=== PATIENT | female | born 1945 | race Caucasian/White ===

== ENCOUNTER 2020-03-06 13:52 | Outpatient (CLI) | payer MEDICARE, SELFPAY ==
--- NOTE | ~2020-03-06 | CT_ITS ---
EXAMINATION: CT brain wo con DATE: 03/06/2020 14:55 INDICATION: Dizziness, giddiness TECHNIQUE: Computed tomography (CT) of the head was performed without intravenous contrast. The mA wa s adjusted according to patient size. Iterative reconstruction technique was employed. Exam dose: 60 5.33 mGy-cm total exam DLP. COMPARISON: None FINDINGS: No intracranial mass lesion or hemorrhage or cerebrovascular accident. No midline shift or mass effect. Normal ventricular size. No subdural or epidural hematoma. There are bilateral carotid siphon internal carotid artery calcifications. The included paranasal sinuses and the mastoid air cells are normally developed and aerated. Bilateral hyperostosis frontalis interna. No fracture or bone destruction of the cranial vault. IMPRESSION: Cerebral atherosclerosis No acute intracranial abnormality Reviewed, dictated and finalized at [facility]. Reviewed, dictated and finalized at [facility].
== END 2020-03-06 13:53 | disposition home or self-care (01) ==
PROVIDERS: PCP Family Medicine; Visit Provider Family Medicine
DX: R51 Headache (principal); R42 Dizziness and giddiness; R20.0 Anesthesia of skin; R20.2 Paresthesia of skin; Z85.43 Personal history of malignant neoplasm of ovary; I67.2 Cerebral atherosclerosis
CPT/HCPCS: 70450

== ENCOUNTER 2020-03-11 14:15 | Outpatient (CLI) | payer MEDICARE, SELFPAY ==
--- NOTE | ~2020-03-11 | US_ITS ---
EXAMINATION: US carotid duplex BI DATE: 03/11/2020 14:55 INDICATION: Disorder of the arteries. Encephalopathy. TECHNIQUE: Grayscale, color Doppler, and pulsed Doppler images of the cervical carotid arteries were obtained. The degree of vessel stenosis is placed in one of the following categories: normal, <50%, 5 0-69%, >=70% but less than near-occlusion, near-occlusion, or total occlusion. Note that percent sten osis relative to normal distal artery lumen diameter is indirectly measured from velocity measurement s as described by Choco, et al. Radiology 2003; [id number]. Notes: Normal: Peak systolic velocity <125 centimeters/sec and no plaque <50%. Peak systolic velocity <125 ( EDV <40; ICA/CCA PSV ratio <2.0; used these factors only a tandem lesions or low cardiac output or co ntralateral disease) 50-69 %: PSV 125-230 (EDV 40-100; ratio 2-4) >= 70% but less than near occlusion: PSV greater than 230 (EDV > 100; ratio> 4.0) Near Occlusion: PSV that is variable; markedly narrowed lumen Occlusion: Absent flow on color/spectral Doppler and no lumen on short scale. COMPARISON: None. FINDINGS: RIGHT: The right common carotid artery (CCA) peak systolic velocity (PSV) is 89 cm/s. The right internal car otid artery (ICA) PSV is 66 cm/s. The right ICA end-diastolic velocity (EDV) is 16 cm/s. The right IC A/CCA PSV ratio is 0.7. The external carotid artery (ECA) PSV is 79 cm/s. There is antegrade flow in the right vertebral artery. LEFT: The left CCA PSV is 87 cm/s. The left ICA PSV is 79 cm/s. The left ICA EDV is 23 cm/s. The left ICA/C CA PSV ratio is 0.9. The ECA PSV is 66 cm/s. There is antegrade flow in the left vertebral artery. IMPRESSION: 1. Less than 50% stenosis in the right internal carotid artery by sonographic criteria. 2. Less than 50% stenosis in the left internal carotid artery by sonographic criteria. Reviewed, dictated and finalized at location [facility]. IMPRESSION: 1. Less than 50% stenosis in the right internal carotid artery by sonographic c chavez. 2. Less than 50% stenosis in the left internal carotid artery by sonographic keith mari.
== END 2020-03-11 14:16 | disposition home or self-care (01) ==
PROVIDERS: PCP Family Medicine; Visit Provider Family Medicine
DX: I65.23 Occlusion and stenosis of bilateral carotid arteries (principal)
CPT/HCPCS: 93880

== ENCOUNTER 2021-05-18 13:05 | Outpatient (CLI) | payer MEDICARE, SELFPAY ==
--- NOTE | ~2021-05-18 | XR_ITS ---
XR lumbar spine min 4V DATE: 05/18/2021 13:37 INDICATION: Back pain TECHNIQUE: AP, lateral, bilateral oblique views, coned lateral lumbosacral view COMPARISON: None FINDINGS: There is diffuse osteopenia. There is dextroscoliosis of the lower thoracic and lumbar spine. No fracture or bone destruction or spondylolisthesis is evident. There is no spondylolisthesis. There is multilevel degenerative disc disease, moderately severe at L3-4 and severe at L4-5 and L5-S1 . The sacroiliac joints are intact. Multiple surgical clips and amrit overlie the lower abdomen and pelvis bilaterally. IMPRESSION: Diffuse osteopenia Scoliosis Multilevel degenerative disc disease Reviewed, dictated and finalized at location [facility].
--- NOTE | ~2021-05-18 | XR_ITS ---
XR thoracic spine 3V DATE: 05/18/2021 13:37 INDICATION: Back pain TECHNIQUE: AP, lateral, swimmer views COMPARISON: None FINDINGS: There is approximately 20 degrees dextroscoliosis measured from T5 to L2. Diffuse osteopenia. There is mild degenerative spurring of the thoracic spine. No fracture or bone destruction is evident. The thoracic pedicles are intact. No paraspinal soft tiss ue thickening. No bone destruction is evident. IMPRESSION: Osteopenia Dextroscoliosis Mild degenerative change Reviewed, dictated and finalized at [facility].
== END 2021-05-18 13:06 | disposition home or self-care (01) ==
PROVIDERS: PCP Family Medicine; Visit Provider Physician Assistant
DX: M54.9 Dorsalgia, unspecified (principal); M85.88 Other specified disorders of bone density and structure, other site; M51.36 Other intervertebral disc degeneration, lumbar region; M41.9 Scoliosis, unspecified; M51.34 Other intervertebral disc degeneration, thoracic region
CPT/HCPCS: 72072; 72110

== ENCOUNTER 2022-07-04 10:56 | Emergency (ER) | payer MEDICARE, SELFPAY ==
[2022-07-04 11:13] VITALS: BP 144/70; PULSE 108; RESP 16; TEMP 36.7; O2SAT 100
--- NOTE | 2022-07-04 11:31 | ED.BACK ---
HPI - Back Pain/Injury General Chief Complaint: Back Pain/Injury Stated Complaint: back pain Time Seen by Provider: 07/04/22 11:31 Source: patient and RN notes reviewed Mode of arrival: ambulatory Limitations: no limitations History of Present Illness HPI Narrative: 77-year-old female presents to the [facility] with red, painful area mid back, right side. States it started yesterday and she has been applying a heating pad. Patient started yesterday morning and started noticing an itchy area. Now having painful burning to the mid back. Had chickenpox as a kid. Related Data Home Medications Medication Instructions Recorded Confirmed AA no.8 343 mg-carnitine 20 1 cap PO .QHS PRN Sleep 12/19/19 07/04/22 mg-grape 10 mg-cocoa 56 [id number] capsule (GABAdone) iodine (kelp) 1 tablet PO DAILY 12/19/19 07/04/22 melatonin 10 mg tablet,extended 10 mg PO .QHS PRN Sleep 12/19/19 07/04/22 release,multiphase tryptophan 500 mg capsule 1,000 mg PO DAILY 12/19/19 07/04/22 vitamin A-vit C-vit E-zinc-Se 1 cap PO DIRECTED 12/19/19 06/17/22 capsule vitamin B complex (B 1 tablet PO DAILY 06/01/20 07/04/22 Complex-Vitamin B12 tablet) Allergies Allergy/AdvReac Type Severity Reaction Status Date / Time No Known Allergies Allergy Verified 06/17/22 14:41 Review of Systems Review of Systems: All systems reviewed & are unremarkable except as noted in HPI and below Constitutional: Constitutional: Reports no additional constitutional complaints, Denies chills and Denies fever(s) Eyes: Eyes: Reports no additional eye complaints ENT: Reports system reviewed and no additional complaints, except as documented Cardiovascular: Cardiovascular: Reports no additional cardiovascular complaints Respiratory: Respiratory: Reports no additional respiratory complaints Gastrointestinal: Gastrointestinal: Reports no additional gastrointestinal complaints Musculoskeletal: Musculoskeletal: Reports no additional musculoskeletal complaints Integumentary/Breasts: Skin/Breast: Reports as per HPI and Reports rash Neurologic: Reports system reviewed and no additional complaints, except as documented Psychiatric: Psychiatric: Reports no additional psychiatric complaints Allergic/Immunologic: Allergic/Immunologic: Reports no additional allergic/immunologic complaints [facility] Past Medical History Medical History (Updated 07/04/22 @ 21:10 by Jennifer Gant APRN) Anemia Injury of neck Ovarian cancer 1999, did not get treatment, total hysterectomy does not f/u with oncology Spinal stenosis Surgical History Surgical History History of appendectomy History of intestinal surgery History of tonsillectomy Hx of hysterectomy, total Family History Family History Mother Ovarian cancer Grandparent Lung cancer Social History Social History Social History: Lives alone. Does not have or want a POA. 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 Gender identity (if verbalized by the patient): Female Spiritual care concerns: Yes Agree to blood products: Yes Comments At the time of my signature, I reviewed and agree with the nursing past medical, surgical, social, and family history. There is no relevant family history pertinent to the patient complaint. Exam Const: General: healthy appearing, no acute distress and alert Nutritional Appearance: well nourished Orientation/consciousness: patient oriented x3 Limitations: no limitations HENMT: Head: normal to inspection Ears: external ears normal Eyes: General: appearance normal, both eyes and all related structures Pupils: Equal, ro
== END 2022-07-04 11:56 | disposition home or self-care (01) ==
PROVIDERS: Emergency Provider Nurse Practitioner
DX: B02.9 Zoster without complications (principal); M48.00 Spinal stenosis, site unspecified; Z85.43 Personal history of malignant neoplasm of ovary; Z90.710 Acquired absence of both cervix and uterus
CPT/HCPCS: 99213; G0463

== ENCOUNTER 2023-01-10 13:04 | Outpatient (CLI) | payer MEDICARE, SELFPAY ==
[2023-01-10 13:59] LABS: Influenza A QL RT-PCR Negative (Negative); Influenza B QL RT-PCR Negative (Negative); SARS-CoV-2 RNA PCR Positive
== END 2023-01-10 13:05 | disposition home or self-care (01) ==
PROVIDERS: PCP Family Medicine; Visit Provider Physician Assistant Medical
DX: U07.1 COVID-19 (principal)
CPT/HCPCS: 87636

== ENCOUNTER 2023-11-29 12:09 | Outpatient (CLI) | payer MEDICARE, SELFPAY ==
--- NOTE | ~2023-11-29 | XR_ITS ---
XR foot LT 2V DATE: 11/29/2023 12:35 INDICATION: Heel pain TECHNIQUE: AP and lateral views COMPARISON: None FINDINGS: Mild plantar and posterior calcaneal enthesopathy, without erosive change or periostitis. No fracture or dislocation, periosteal reaction or bone destruction. No fracture or dislocation, periosteal reaction or bone destruction. IMPRESSION: Mild plantar and posterior calcaneal enthesopathy Reviewed, dictated and finalized at location [facility]. [employer]SE IN[employer]
== END 2023-11-29 12:10 | disposition home or self-care (01) ==
LOC: ANHIMG 12:12
PROVIDERS: PCP Family Medicine; Visit Provider Physician Assistant
DX: M77.32 Calcaneal spur, left foot (principal)
CPT/HCPCS: 73620

== ENCOUNTER 2025-05-05 11:10 | Outpatient (CLI) | payer MEDICARE, SELFPAY ==
--- NOTE | ~2025-05-05 | XR_ITS ---
XR hip BI 2V w AP pelvis Ordering provider: Lourdes Cartwright PA-C History: . M25.551 - Pain in right hip, TIGHTNESS IN BACK AND HIPS . Comparison: None. FINDINGS: BONES: No acute fracture or dislocation. HIP JOINT SPACES: Bilateral hip osteoarthritic changes. SACROILIAC JOINT SPACES/LUMBAR SPINE: The sacroiliac joint spaces are normal. Mild degenerative park es of the visualized lower lumbar spine. Levoscoliosis. PUBIC SYMPHYSIS: Normal. SOFT TISSUES: Normal. Postoperative changes in the abdomen. IMPRESSION: No acute osseous abnormality of the bilateral hips and pelvis. Reviewed, dictated and finalized at location [facility].
--- NOTE | ~2025-05-05 | XR_ITS ---
3 VIEWS LUMBAR SPINE Ordering provider: Lourdes Cartwright PA-C History: . M25.551 - Pain in right hip . Comparison: None. FINDINGS: VERTEBRAL BODIES: No visible fracture or subluxation. Mild dextroscoliosis. Degenerative changes of t he spine. DISK SPACES: Degenerative disc disease at the level of L2-L3, L3-4, L4-L5 and L5-S1. SOFT TISSUES: Normal. IMPRESSION: No acute osseous abnormality lumbar spine. Multilevel degenerative disc disease. Reviewed, dictated and finalized at location [facility].
== END 2025-05-05 11:11 | disposition home or self-care (01) ==
PROVIDERS: PCP Family Medicine; Visit Provider Student in an Organized Health Care Education/Training Program
DX: M51.369 Other intervertebral disc degeneration, lumbar region without mention of lumbar back pain or lower extremity pain (principal); M51.379 Other intervertebral disc degeneration, lumbosacral region without mention of lumbar back pain or lower extremity pain
CPT/HCPCS: 72100; 73521

== ENCOUNTER 2025-05-12 09:25 | Emergency (ER) | payer MEDICARE, SELFPAY ==
--- NOTE | 2025-05-12 09:28 | ED_ITS ---
HPI - Abdominal Pain General Chief Complaint: Abdominal Pain Stated Complaint: Constipation/Swollen Anal Time Seen by Provider: 05/12/25 09:26 Source: patient Mode of arrival: ambulatory Limitations: no limitations History of Present Illness HPI narrative: Uyen is a 79 year old female patient presenting to the clinic today with c/o possible constipation/hemorrhoid. She reports she was unable to have a bowel m ovement yesterday and felt as though she needed to go today and was unable to successfully pass her bowels. States that she has a pressure/pain to the rectum. History of hemorrhoids in the past but has never had a problem with them. Denies any fevers, chills, body aches. Denies any nausea, vomiting, diarrhea, or abdominal pain. No recent blood in her stool. States she mostly eats vegan diet but did have some chicken with cheese-this tends to bind her up. Related Data Allergies Allergy/AdvReac Type Severity Reaction Status Date / Time No Known Allergies Allergy Verified 05/12/25 10:01 Review of Systems Review of Systems: Pertinent positives per HPI. Patient denies any fever, chills, rash, headache, visual changes, dizziness, cough, shortness of breath, chest pain, palpitations, nausea, vomiting, diarrhea, abdominal pain, or any urinary issues. [facility] Past Medical History Medical History Spinal stenosis Anemia Injury of neck Ovarian cancer 1999, did not get treatment, total hysterectomy does not f/u with oncology Surgical History Surgical History Hx of hysterectomy, total History of tonsillectomy History of intestinal surgery History of appendectomy Family History Family History Mother Ovarian cancer Grandparent Lung cancer Social History Social History Social History: Lives alone. Does not have or want a POA. 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 Gender identity (if verbalized by the patient): Female Spiritual care concerns: Yes Agree to blood products: Yes Comments At the time of my signature, I reviewed and agree with the nursing past medical, surgical, social, and family history. There is no relevant family history pertinent to the patient complaint. Exam Narrative: General: Well-developed, well nourished, in no apparent distress. Head: Normocephalic, atraumatic. Cardio: Regular rate and rhythm, s1 and s2 normal, no murmur appreciated. Resp: Clear to auscultation bilaterally, no rhonchi, rales, wheezing or rubs. Abdomen: Soft, pliable, bowel sounds present in all quadrants, non-tender to palpation, no organomegly, no CVAT tenderness. Rectum: Large swollen tender nonthrombosed hemorrhoid at 12:00 of the rectum Course Course Emergency Course: Portions of this record may have been created with voice recognition software. Level of Care: Express Care Visit Vital Signs Vital signs: Vital signs reviewed MDM - Abdominal Pain MDM Narrative Medical decision making narrative: At the time of visit patient is resting comfortably on the exam table. Patient appears to be nontoxic. Plan: I suspect patient has a external hemorrhoid. Prescription for Anusol HC and lidocaine was sent to the pharmacy. Recommend taking stool softeners increasing fiber in her diet. Avoid prolonged sitting. Supportive measures were discussed with the patient and they voiced understanding discharge instructions and agrees to treatment plan. Return precautions reviewed Differential Diagnosis Differential diagnosis: Likely abdominal pain, acute appendicitis, calculus of kidney, constipation, diverticulitis, endometriosis, gastroenteritis, pancreatitis, small bowel obstruction and other (Hemorrhoid, thrombosed hemorrhoid) Discharge Plan Discharge Clinical Impression: Hemorrhoid Qualifiers: Hemorrhoid type: unspecified Qualified Code(s): K64.9 - Unspecified hemorrhoids Patient Disposition: Home Condition: Stable Instructions: Antibiotic Form, Hemorrhoids (ED) Additional Instructions: Increase fluids and stay well hydrated Take stool softeners 1-2 times per day Increase fiber in your diet Avoid prolonged sitting Apply Anusol- HC as directed Apply lidocaine as directed Follow-up with your primary care doctor in 1 week if symptoms persist Patient Language: Faroese Prescriptions: New hydrocortisone [Anusol-HC] 2.5 % cream with perineal applicator 1 applic RECTAL BID 7 Days Qty: 30 0RF lidocaine HCl [Lidocaine Viscous] 2 % solution 1 applic mucous membrane QID PRN (Reason: pain) 7 Days Qty: 100 1RF Follow-up/Referrals: Lourdes Cartwright PA-C [Primary Care Provider] - Time of Disposition: 09:54 Quality NIHSS Nursing Documentation ED NIHSS nursing documentation: reviewed/agree
[2025-05-12 09:40] VITALS: BP 152/57; PULSE 65; RESP 16; TEMP 37.3; O2SAT 100
== END 2025-05-12 10:00 | disposition home or self-care (01) ==
PROVIDERS: Emergency Provider Nurse Practitioner Family; PCP Student in an Organized Health Care Education/Training Program
DX: K64.9 Unspecified hemorrhoids (principal); M48.00 Spinal stenosis, site unspecified; Z85.43 Personal history of malignant neoplasm of ovary; Z90.710 Acquired absence of both cervix and uterus
CPT/HCPCS: 99213; G0463

== ENCOUNTER 2025-09-14 15:21 | Emergency (ER) | payer MEDICARE, SELFPAY ==
--- NOTE | ~2025-09-14 | XR_ITS ---
XR thoracic spine 3V Indication: back pain on right side Comparison: None Findings: Dextroconvex scoliosis. Moderate loss of vertebral height throughout. No fracture or subluxation. Moderate to severe loss of disc height throughout. Soft tissues unremarkable Impression: No acute abnormality. Reviewed, dictated and finalized at location P. ESS WORKER Impression: No acute abnormality.
[2025-09-14 15:31] VITALS: BP 149/73; PULSE 93; RESP 16; TEMP 37.4; O2SAT 100
--- NOTE | 2025-09-14 16:06 | ED.GENADULT ---
HPI - General Adult General Chief complaint: Back Pain/Injury Stated complaint: pain in back Time Seen by Provider: 09/14/25 16:06 Source: patient Mode of arrival: ambulatory Limitations: no limitations History of Present Illness HPI narrative: 80-year-old female patient presents to [facility] with complaints of mid back pain that started about 2 days ago. Patient states she recently finished physical therapy about 3 weeks ago for back pain she does have a history of spinal stenosis. Patient states she has discontinued those exercises at home because they have helped a lot. Patient states she did take some aspirin today for the back pain denies any specific injury that she recalls. Patient states she knows she does have a history of arthritis, scoliosis and kyphosis. Patient states that she was feeling okay this morning and then when she put a heating pad on her back she fed up states that it felt like there was a knife stabbing in her back. Patient states she has frequency of urination but states that is quite normal for her denies any pain with urination denies any blood the urination and she is aware of. Related Data Home Medications ?Medication ?Instructions ?Recorded ?Confirmed ?Last Taken ?Type No Home Medications 09/14/25 09/14/25 Unknown History Allergies Allergy/AdvReac Type Severity Reaction Status Date / Time No Known Allergies Allergy Verified 09/14/25 15:41 Review of Systems Review of Systems: CONSTITUTIONAL: Denies fever, chills, or sweats. EYES: Denies visual changes, redness, or discharge. ENT: Denies rhinorrhea, congestion, sore throat, or otalgia. CARDIOVASCULAR: Denies chest pain, palpitations, or edema. RESPIRATORY: Denies cough or dyspnea. GASTROINTESTINAL: Denies abdominal pain, nausea, vomiting, or diarrhea. GENITOURINARY: Denies dysuria or hematuria. SKIN: Denies rash or itching. MUSCULOSKELETAL: Positive mid back pain, denies joint pain, or myalgia. NEUROLOGIC: Denies headache, numbness, or weakness. PSYCHIATRIC: Denies anxiety or depression. [facility] Past Medical History Medical History Spinal stenosis Anemia Injury of neck Ovarian cancer 1999, did not get treatment, total hysterectomy does not f/u with oncology Surgical History Surgical History Hx of hysterectomy, total History of tonsillectomy History of intestinal surgery History of appendectomy Family History Family History Mother Ovarian cancer Grandparent Lung cancer Social History Social History Social History: Lives alone. Does not have or want a POA. 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 Gender identity (if verbalized by the patient): Female Spiritual care concerns: Yes Agree to blood products: Yes Comments At the time of my signature I agree with nursing past medical history, surgical, social, and family history. There is no relevant family history pertinent to the presenting complaint. Exam Narrative: GENERAL: Well-appearing, well-nourished, and in no acute distress. HEAD: Normocephalic, atraumatic. EYES: PERRLA and EOMI. ENT: Nares clear, no rhinorrhea or epistaxis. Mucous membranes moist. NECK: Supple. No lymphadenopathy CHEST: Clear to auscultation. No respiratory distress. HEART: Regular rate and rhythm. No murmur heard. Normal peripheral pulses. ABDOMEN: Soft, nontender, nondistended, normal active bowel sounds. EXTREMITIES: Normal range of motion. No edema. BACK: Patient is able to ambulated without assistance. Pt is seated on the stretcher in no obvious distress. No surface trauma noted. No muscle tenderness to Palpation. No spasm or mass. No step-offs or deformity noted to the cervical, thoracic or lumbar spine to firm Palpation at the midline. Patient states she does not have any pain at this time but normally it is around the T3 and T 5 area No CVA tenderness to percussion. No saddle anesthesia. ROM: able to stand erect. Normal flexion, extension, Lateral bending and rotation without limitation or complaint of pain. SKIN: Warm, dry, no rash. NEURO: No focal deficits. Alert and oriented x3. Course Course Level of Care: Express Care Visit Reevaluation(s) Reevaluation #1: Re-evaluated patient notified her that her x-ray is negative for any acute fractures but does show her ongoing chronic back pain issues. Discussed with patient she can take [id number] Tylenol ibuprofen if she would like. Patient described that she would rather do more natural remedies. Discussed with her that she can try at tumor at 1500 mg twice a day to help with inflammation pain as well as increase her magnesium and [place] threes. Discussed with patient I had with highly also recommend an anti-inflammatory diet that could decrease her chronic inflammation pain as well as encourage ongoing weight training with low weights and increased repetitions to help strengthen the muscles in her back. Patient is in agreement with this plan of care and states that she will try some of the remedies otherwise she can follow-up with her primary doctor for further evaluation. Date: 09/14/25 Time: 17:19 Vital Signs Vital signs: Vital Signs Temperature 37.4 C 09/14/25 15:31 Pulse Rate 93 09/14/25 15:31 Respiratory Rate 16 09/14/25 15:31 Blood Pressure 149/73 H 09/14/25 15:31 Pulse Oximetry 100 09/14/25 15:31 Oxygen Delivery Room Air 09/14/25 15:31 Temperature 37.4 C 09/14/25 15:31 Pulse Rate 93 09/14/25 15:31 Respiratory Rate 16 09/14/25 15:31 Blood Pressure 149/73 H 09/14/25 15:31 Pulse Oximetry 100 09/14/25 15:31 Oxygen Delivery Room Air 09/14/25 15:31 Vital signs reviewed. The patient has been informed that they may have pre-hypertension or Hypertension based on a BP reading in the department. I recommend that the patient call the primary care provider listed on their discharge instructions or a physician of their choice this week to arrange follow up for further evaluation of possible pre-hypertension or Hypertension Medical Decision Making MDM Narrative Medical decision making narrative: Discussed with patient we will go ahead and do urine dip just to rule out infection as well as an x-ray to rule out any underlying fractures but most likely this is a flare up of her already existing chronic back pain and when she can take Tylenol, ibuprofen and continue her aspirin before would also recommend ice and avoid heat since that seems to flare it up even worse. Differential Diagnosis Differential Diagnosis: Differential diagnosis: Acute musculoskeletal injury or exacerbation, neurological emergency, acute coronary syndrome, kidney stones, epidural abscess or hematoma,Cauda Equina Syndrome, herniation. Vital Signs Vital Signs: Vital Signs Temperature 37.4 C 09/14/25 15:31 Pulse Rate 93 09/14/25 15:31 Respiratory Rate 16 09/14/25 15:31 Blood Pressure 149/73 H 09/14/25 15:31 Pulse Oximetry 100 09/14/25 15:31 Oxygen Delivery Room Air 09/14/25 15:31 Temperature 37.4 C 09/14/25 15:31 Pulse Rate 93 09/14/25 15:31 Respiratory Rate 16 09/14/25 15:31 Blood Pressure 149/73 H 09/14/25 15:31 Pulse Oximetry 100 09/14/25 15:31 Oxygen Delivery Room Air 09/14/25 15:31 Vital signs reviewed. Lab Data Labs: Lab Results 09/14/25 Range/Units 16:21 POC Urine Color Yellow POC Urine Clarity Clear POC Urine pH 6.5 POC Ur Specif [place] 1.010 POC Urine Protein Negative (Negative) POC Ur Glucose (UA) Negative (Negative) POC Urine Ketones Negative (Negative) POC Urine Blood Trace (Negative) POC Urine Nitrite Negative (Negative) POC Urine Bilirubin Negative (Negative) POC Urine Urobilinogen 0.2 POC U Leukocyte Esteras Negative (Negative) Imaging Data Radiologist's impression: [place] [address] XRay Report Signed Patient: Uyen Melton I : 1945 MR#: [id number] Age: 80 Acct:[id number] Loc: [facility] ADM Date: 09/14/[address]: Ordering Physician: Carly Reed QUALITY CONTROL COORDINATOR Date of Service: 09/14/25 Procedure(s): XR thoracic spine 3V Accession Number(s): [id number] cc: Lourdes Cartwright PA-C; Carly Reed APRN~ XR thoracic spine 3V Indication: back pain on right side Comparison: None Findings: Dextroconvex scoliosis. Moderate loss of vertebral height throughout. No fracture or subluxation. Moderate to severe loss of disc height throughout. Soft tissues unremarkable Impression: No acute abnormality. Reviewed, dictated and finalized at location P. [facility] [employer] Critical Care Time Critical Care Time Critical Care Time: No Discharge Plan Discharge Clinical Impression: Chronic back pain Patient Disposition: Home Condition: Stable Instructions: Antibiotic Form, Back Pain (ED) Additional Instructions: Ice and heat to the area for 20-30 minutes Gentle stretching exercises Gentle massage Caution with lifting, bending, stooping, twisting Avoid pushing, pulling Anti-inflammatory medicine as directed--take with food He may take the muscle relaxant and anti-inflammatory at the same time Pain medicine as directed for severe pain--caution drowsiness-no driving or alcohol. If this medicine is a narcotic, you can become constipated. He may want to start a laxative right away. Follow-up with your PCP if not improving in 5-7 days Patient Language: Swedish Prescriptions: No Action No Home Medications Follow-up/Referrals: Lourdes Cartwright PA-C [Primary Care Provider, Family Practice] Time of Disposition: 17:00
[2025-09-14 16:28] LABS: EDUAAPPEAR Clear; EDUABILI Negative (Negative); EDUABLOOD Trace (Negative); EDUACOLOR1 Yellow; EDUAGLUCOSE Negative (Negative); EDUAKETONE Negative (Negative); EDUALEUKO Negative (Negative); EDUANITRATE Negative (Negative); EDUAPH 6.5; EDUAPROTEIN Negative (Negative); EDUASPGRAVITY 1.010; EDUAUROBILI 0.2
== END 2025-09-14 17:17 | disposition home or self-care (01) ==
PROVIDERS: Emergency Provider Nurse Practitioner Family; PCP Student in an Organized Health Care Education/Training Program
DX: G89.29 Other chronic pain (principal); M54.6 Pain in thoracic spine; M48.00 Spinal stenosis, site unspecified; M19.90 Unspecified osteoarthritis, unspecified site; M40.209 Unspecified kyphosis, site unspecified; Z85.42 Personal history of malignant neoplasm of other parts of uterus; Z90.710 Acquired absence of both cervix and uterus
CPT/HCPCS: 72072; 81003; 87086; 99213; G0463

== ENCOUNTER 2025-10-17 11:05 | Emergency (ER) | payer MEDICARE, SELFPAY ==
--- NOTE | 2025-10-17 11:09 | ED.GENADULT ---
HPI - General Adult General Chief complaint: Nausea/Vomiting/Diarrhea Stated complaint: Diarrhea/Unable to Eat Source: patient, RN notes reviewed and old records reviewed Mode of arrival: ambulatory Limitations: no limitations History of Present Illness HPI narrative: 80-year-old female presents to the [facility] with continued belching, feeling gassy and bloaty. Patient reports that she ate a piece of pumpkin pie a 2 days ago and since has had some stomach discomfort. Denies any chest pain, abdominal pain. Denies any shortness of breath. Patient took a laxative 2 days ago had some soft stools. States that she made herself have 4 bowel movements that were normal this morning. States that she just feels very gassy denies any other treatment prior to arrival. No pain with palpation. Denies any fevers. Onset (ago): day(s) (2) Related Data Home Medications ?Medication ?Instructions ?Recorded ?Confirmed ?Last Taken ?Type No Home Medications 09/14/25 10/17/25 Unknown History Allergies Allergy/AdvReac Type Severity Reaction Status Date / Time No Known Allergies Allergy Verified 10/17/25 11:11 Review of Systems Review of Systems: All systems reviewed & are unremarkable except as noted in HPI and below Constitutional: Constitutional: Reports no additional constitutional complaints Cardiovascular: Cardiovascular: Reports no additional cardiovascular complaints, Denies chest pain and Denies dyspnea Respiratory: Respiratory: Reports no additional respiratory complaints, Denies chest congestion, Denies cough and Denies dyspnea Gastrointestinal: Gastrointestinal: Reports as per HPI Musculoskeletal: Musculoskeletal: Reports no additional musculoskeletal complaints Integumentary/Breasts: Skin/Breast: Reports system reviewed and no additional complaints, except as docu PMFSH Past Medical History Medical History Spinal stenosis Anemia Injury of neck Ovarian cancer 1999, did not get treatment, total hysterectomy does not f/u with oncology Surgical History Surgical History Hx of hysterectomy, total History of tonsillectomy History of intestinal surgery History of appendectomy Family History Family History Mother Ovarian cancer Grandparent Lung cancer Social History Social History (Reviewed 10/17/25 @ 20:05 by AMY Ny Social History: Lives alone. Does not have or want a POA. 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 Gender identity (if verbalized by the patient): Female Spiritual care concerns: Yes Agree to blood products: Yes Comments At the time of my signature, I reviewed and agree with the nursing past medical, surgical, social, and family history. There is no relevant family history pertinent to the patient complaint. Exam Const: General: cooperative, healthy appearing, comfortable, no acute distress, well developed, alert and well nourished Nutritional Appearance: well nourished Orientation/consciousness: patient oriented x3 Limitations: no limitations HENMT: Head: normal to inspection Mouth: Yes Normal oral and palatal mucosa present, Yes lip normal and Yes tongue normal Eyes: General: appearance normal, both eyes and all related structures Alignment and Position: alignment normal Neck: Neck: normal visual inspection, full ROM, no lymphadenopathy and no meningeal signs Chest: Chest palpation & inspection: normal inspection of the chest Resp: Effort & Inspection: normal respiratory effort and able to speak in complete sentences Auscultation: clear to auscultation bilaterally, no crackles, no rales, no rhonchi and no wheezes Cardio: Rate: regular rate GI: GI Palp: No abdominal tenderness and Yes Soft to palpation Auscultation: normal bowel sounds : General: Yes no CVA tenderness Skin: General skin exam: normal color and no rashes or lesions noted Neuro: General: patient oriented x3, gait normal, moves all extremities and no meningeal signs Cognition (Neuro): normal cognition Speech: normal speech Gait exam (Neuro): Normal gait present Extrem: General: normal to inspection, full ROM, capillary refill normal and normal gait Psych: Appearance: grossly normal and well kempt Mental Status: mental status grossly normal Speech and movement: Normal speech and movement present and Clear speech present Affect: normal affect Attitude: cooperative Course Course Level of Care: Express Care Visit Vital Signs Vital signs: Vital Signs Temperature 98.4 F 10/17/25 11:20 Pulse Rate 96 10/17/25 11:20 Respiratory Rate 20 10/17/25 11:20 Blood Pressure 139/67 10/17/25 11:20 Pulse Oximetry 98 10/17/25 11:20 Oxygen Delivery Room Air 10/17/25 11:20 Temperature 98.4 F 10/17/25 11:20 Pulse Rate 96 10/17/25 11:20 Respiratory Rate 20 10/17/25 11:20 Blood Pressure 139/67 10/17/25 11:20 Pulse Oximetry 98 10/17/25 11:20 Oxygen Delivery Room Air 10/17/25 11:20 reviewed MDM MDM Narrative Medical decision making narrative: Patient sitting in exam room. Patient is nontoxic, vitals are stable. Patient presents with gas and bloating after eating a piece of pumpkin pie. Denies any diarrhea today states that she has had for normal bowel movements. Denies any abdominal pain, chest pain or shortness of breath. States that she ate a piece of toast this morning without issue. Discussed conservative treatment as well as strict signs and symptoms to proceed to the emergency room which she verbalized understanding. Discharge instructions reviewed with patient, as well as provided in writing per nursing staff. The instructions also include specific and strict return/GO TO THE ER as well as f/u information. All questions have been answered, and the patient deny any further questions with discharge and discharge plan. Some parts of this dictation were generated by voice recognition software and may contain typographical and/or grammatical inaccuracies. Differential Diagnosis Differential Diagnosis: Differential diagnostic considerations for acute abdominal pain?include surgical abdominal etiology, ischemic bowel, inflammatory bowel disease, gastritis, PUD, gastroenteritis, cardiac etiology, appendicitis, diverticulitis, bowel obstruction, kidney stone, pyelonephritis, abdominal aortic aneurysm, pancreatitis, constipation, endometriosis. Medical Records I have reviewed the following patient records and this information was taken into consideration when formulating the assessment and plan.: previous clinic visits Discharge Plan Discharge Clinical Impression: Gastroenteritis Patient Disposition: Home Condition: Stable Instructions: Antibiotic Form, Gastroenteritis (DC), Gas and Bloating (ED) Additional Instructions: keep your diet very simple. Nothing fried greasy spicy or highly processed. Try to consume plenty of fluids to include water, Gatorade, Pedialyte, ice pops Jell-O. Try taking simethicone per package instructions if you can tolerate very simple foods such as bananas, rice, applesauce or toast follow-up with primary care provider for worsening symptoms please go directly to the emergency room. Worsening symptoms include but not limited to abdominal pain, unable to keep fluids down, nausea or vomiting or uncontrolled diarrhea. Patient Language: Ivorian Prescriptions: No Action No Home Medications Follow-up/Referrals: Lourdes Cartwright PA-C [Primary Care Provider, [facility]] - 1 Week Clinical Impression: Gastroenteritis Time of Disposition: 11:48
[2025-10-17 11:20] VITALS: BP 139/67; PULSE 96; RESP 20; TEMP 36.9; O2SAT 98
== END 2025-10-17 11:54 | disposition home or self-care (01) ==
PROVIDERS: Emergency Provider Nurse Practitioner; PCP Student in an Organized Health Care Education/Training Program
DX: K52.9 Noninfective gastroenteritis and colitis, unspecified (principal); Z85.43 Personal history of malignant neoplasm of ovary; Z90.710 Acquired absence of both cervix and uterus
CPT/HCPCS: 99211; G0463